=== PATIENT | male | born 1980 | race Caucasian/White ===

== ENCOUNTER 2016-09-09 20:32 | Inpatient (IN) | payer OTHER ==
[~2016-09-09] VITALS: Ht 188 cm; Wt 91.8 kg
[2016-09-09 20:46] VITALS: BP 111/70; PULSE 110; RESP 20; O2SAT 100
--- NOTE | 2016-09-09 21:40 | ED.REPORT ---
HPI-Eye Problem Date of Service Sep 09, 2016 ED Provider: Jabari Rudolph MD Patient is a 36 year old male with a hx of intermittent IV drug use who presents to the ED s/p falling onto a glass mirror late last night. Associated symptoms include R hand swelling, pain, and redness with drainage from a laceration. He denies fever, chills, vomiting, or any other symptoms. He last used IV drugs 3 weeks ago. Nursing Notes Stated Complaint: GLF, RIGHT HAND INJURY Chief Complaint: Extremity Trauma Nursing Notes Reviewed: Yes Allergies: Coded Allergies: hydrocodone (Verified Allergy, Unknown, 09/09/16) No Active Prescriptions or Reported Meds General Time Seen by MD: 21:35 Chief Complaint Other (R hand problem ) Hx Obtained From: Patient Arrived By: Walk-in Sudden in Onset?: Yes Past Medical History Past Medical History none reported Past Surgical History denies Smoking History Current Some Day Smoker Social History Alcohol Use: Denies alcohol use Drug Use: IV drugs, Meth Occupation staying with girlfriend Ambulatory Status Independent Review of Systems Review of Systems Note: +R hand redness, laceration with drainage Constitutional: Denies: Chills, Fever Complete sys rev & neg: except as marked. GI: Denies: Vomiting Musculoskeletal: Reports: Extremity pain, Extremity swelling Physical Exam Initial Vital Signs Vital Signs (First) Date Time Temp Pulse Resp B/P Pulse Ox O2 Delivery O2 Flow Rate FiO2 09/09/16 20:46 37.2 110 20 111/70 100 Room Air Initial VS: Reviewed Extremities: Vascular intact, Neuro intact Skin: Warm, Dry Neurologic: Alert, Oriented, Nonfocal Psychiatric: Mood/affect normal, Behavior normal, Normal thought content Head / Eyes: Atraumatic, Normocephalic General/Constitutional: Awake, Alert, Well developed Respiratory / Chest: Breath sounds NL, Breath sounds = bilat, No respiratory distress Cardiovascular: Heart rate NL, Regular rhythm, Heart sounds NL Wrist / Hand: No deformity R hand neurovascularly intact Streaking lymphangitis 1 cm Laceration, superficial, proximal to R third MCP joint Interpretation & Diagnostics Lab Results Interpretation Result Diagram: 09/09/16222409/09/162224 Test 09/09/16 22:25 09/09/16 22:35 White Blood Count 15.0th/mm3 (3.8-10.1) Red Blood Count 4.65mil/mm3 (4.40-5.80) Hemoglobin 14.3g/dL (13.8-17.2) Hematocrit 41.8% (41.0-50.0) Mean Corpuscular Volume 89.9fL (81-100) Mean Corpuscular Hemoglobin 30.8pg (27.0-35.0) Mean Corpuscular Hemoglobin Concent 34.2% (32.0-37.0) Red Cell Distribution Width 12.1% (12.3-15.4) Platelet Count 286bil/L (150-400) Neutrophils (%) (Auto) 77.5% (40-74) Lymphocytes (%) (Auto) 11.3% (14-46) Monocytes (%) (Auto) 8.3% (4-12) Eosinophils (%) (Auto) 2.3% (0-5) Basophils (%) (Auto) 0.3% (0-3) Hematology Comments Sodium Level 141mEq/L (134-144) Potassium Level 3.7mEq/L (3.5-5.2) Chloride Level 101mEq/L (97-108) Carbon Dioxide Level 27mmol/L (18-29) Blood Urea Nitrogen 14mg/dL (6-20) Creatinine 1.21mg/dL (0.76-1.27) Estimat Glomerular Filtration Rate 73mL/min (>59) Glucose Level 111mg/dL (60-99) Calcium Level 8.8mg/dL (8.5-10.1) Total Bilirubin 0.4mg/dL (0.0-1.2) Aspartate Amino Transf (AST/SGOT) 16U/L (0-50) Alanine Aminotransferase (ALT/SGPT) 17U/L (0-44) Alkaline Phosphatase 86U/L (25-150) Total Protein 7.0g/dL (6.4-8.4) Albumin 4.1g/dL (3.4-5.0) Hold Aldana Top Tube Received (Received) Procalcitonin 0.75ng/mL (0.00-0.08) X-Ray Interpretation Xray Interpretation: No foreign body X-Ray Ordered: Hand right Interpretation / Wet Read by: Interpret - ED physician Re-Eval/Medical Decision Med Decision/Clinical Course 36-year-old male history of IV drug use presenting with right hand tenosynovitis status post laceration from hitting a glass mirror yesterday. He has diffuse right hand tenosynovitis with streaking lymphangitis. His white blood cell count is elevated. He is hemodynamically stable. Discussed with orthopedics who recommended I&D at the laceration site. I performed a vertical laceration per their request and placed 1/4 inch packing. Serosanguineous discharge. Cultures were sent. Patient was started on vancomycin and Zosyn. He will be nothing by mouth at midnight. Admitted to hospital. Re-Evaluation/Progress : Time of Eval: 23:09 Re-Evaluation/Progress Note: Discussed plan for admit. Patient understands and agrees with plan. All questions addressed at this time. Consultation #1: Referral / Consult Name: Stone Winters MD Consulted With: Ortho hand Call Returned at: 22:15 Architectural Project Manager: Will see patient, Agrees with eval, Agrees with plan Note: Admit for IV abx, will see pt in morning. Perform I&D. Consultation #2: Referral / Consult Name: Samaria Tapia DO Consulted With: Hospitalist Call Returned at: 23:23 Architectural Project Manager: Will see patient, Agrees with eval, Agrees with plan, Accepts admit Note: Discussed pt's case. Accepts admit. Counseled Regarding: Diagnosis, Lab results, Need for admission Discharge & Departure Primary Impression: Tenosynovitis of hand Disposition: ADMITTED TO HOSPITAL Discharge Condition All VS Reviewed: Yes Condition: Stable Referrals: NOPCP (PCP) Scribe Attestation Portions of this note were transcribed by Jazmin Styles. I, Dr. Rudolph personally performed the history, physical exam and medical decision-making; I reviewed and confirmed the accuracy of the information in the transcribed note. Signed by: Jazmin Styles 09/09/16, 8157 Procedures Incision & Drainage Abscess I & D Abscess: Right hand I&D Time: 23:02 Procedure Performed by: ED physician Consent / Setup / Site Prep: Informed consent provided, Consent from patient , Time-out performed, Hand hygiene observed, Stand sterile technique Location of Abscess: R hand Skin Preparation Agent: Betadine Local Anesthesia: Lidocaine 1% (3 mL ) Pus Drained: Small, Serosanguinous Irrigation: Copious Post-Procedure / Complications: Packing placed, Culture obtained, Dressing applied, No complications, Condition improved, Tolerated procedure well, Patient stable Jabari Rudolph MD Sep 09, 2016 21:40 JAZMIN STYLES Sep 09, 2016 21:50
[2016-09-09] MEDS ORDERED: Vancomycin Dose per Pharmacist XX ONE (21:50)
[2016-09-09] MEDS ORDERED: 0.9% Sodium Chloride 1,000 ML IV ONE (21:50)
[2016-09-09] MEDS ORDERED: Ondansetron 2 mg/mL 2 mL Inj IVPUSH PRN ×2 (21:50→23:30)
[2016-09-09] MEDS ORDERED: Vancomycin Inj 1,750 MG in 0.9% Sodium Chloride 500 ML IV ONE (22:00)
[2016-09-09] MEDS ORDERED: Lidocaine 1% 50 mL Inj NERVEBLOCK ONE (22:20)
[2016-09-09] MEDS ORDERED: Piperacillin-Tazo 3.375 Gm Inj 3.375 GM in Dextrose 5% Minibag Plus 50 ML IV ONE (22:45)
[2016-09-09 22:49] LABS: Mean Corpuscular Volume 89.9 fL (81-100)
[2016-09-09 22:50] LABS: BASOPHILS % (AUTO) 0.3 % (0-3); EOSINOPHILS % (AUTO) 2.3 % (0-5); MONOCYTES % (AUTO) 8.3 % (4-12); Mean Corpuscular Hemoglobin 30.8 pg (27.0-35.0); NEUTROPHILS % (AUTO) 77.5 % (40-74); Platelet Count 286 bil/L (150-400)
[2016-09-09] MEDS ORDERED: Alum-Mag Hydrox-Simeth 30 mL Suspension PO PRN (23:30)
[2016-09-09 23:34] VITALS: BP 150/88; PULSE 87; RESP 16; O2SAT 100
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
[2016-09-10] MEDS ORDERED: Polyethylene Glycol (PEG) 17 Gm Powder PO PRN (00:10)
[2016-09-10] MEDS ORDERED: Alum-Mag Hydrox-Simeth 30 mL Suspension PO PRN (00:10)
[2016-09-10] MEDS ORDERED: Ondansetron 2 mg/mL 2 mL Inj IVPUSH PRN (00:10)
--- NOTE | 2016-09-10 00:30 | NUR ---
Admit Received report @ [id number] [facility] [employer] Keira, patient arrived now accompanied by girlfriend Dx Tenosynovitis r/t fall. Patient quite somnolent/drowsy MD in with now to assess with minimal answers unable to complete admission patient fast to fall asleep girlfriend did get him to eat some food from [employer], plan is NPO after 4am for I&D, ER did do some draining of abscess and packed and wrapped per report patient place on CPOX, was able to remove pants with patients permission notable knee abrasion to wrapped in gauze was able to stand up briefly to put on PJ pants and get back to bed without assist but was quick to fall back asleep.
[2016-09-10 00:50] VITALS: BP 132/77; PULSE 90; RESP 16; O2SAT 98
[2016-09-10] MEDS: 0.9% Sodium Chloride 1,000 ML IV SCH ×2 (00:54→10:06)
[2016-09-10 05:58] VITALS: BP 127/73; PULSE 88; RESP 19; O2SAT 96
[2016-09-10 06:54] LABS: BASOPHILS % (AUTO) 0.2 % (0-3); EOSINOPHILS % (AUTO) 2.1 % (0-5); MONOCYTES % (AUTO) 8.7 % (4-12); Mean Corpuscular Hemoglobin 30.8 pg (27.0-35.0); Mean Corpuscular Volume 90.7 fL (81-100); NEUTROPHILS % (AUTO) 78.6 % (40-74); Platelet Count 238 bil/L (150-400)
--- NOTE | 2016-09-10 06:54 | PCM.CONPHA ---
Subjective Date of Service: Sep 10, 2016 Requesting Provider: Rakesh Orellana DO Right hand infection History of Present Illness tenosynovitis Reason for Pharmacy Consult: Vancomycin Dosing Objective Assessment/Plan Assessment/Plan A/ - 36 y/o male patient required Vancomycin and Zosyn for tenosynovitis. He is intermittent iv drug user, with hx of abscess, cellulitis, and MRSA - Afebrile, WBC: 15, blood cultures are pending - Received Vancomycin loading dose of 1750 mg iv in ED, along with Zosyn - Had I&D in ED, and planned I&D surgery in am, NPO and IVF 100ml/hr - Wt: 91.8 kg, ht: 188 cm, BMI: 26 kg/m2, SCr: 1.21 mg/dL (unknown baseline) , estimated clearance ~ 110 ml/dL (ABW globalRPh), t1/2 ~ 7hrs, Vd ~ 64 L P/ - Give vancomycin 1250 mg iv q8h. Trough level ordered before 4th dose @ 2230 on 09/10 Pharmacy will continue to follow and make necessary adjustment Thank you for consulting clinical pharmacy in the care of this patient Felix Sanchez Sep 10, 2016 06:54
--- NOTE | 2016-09-10 07:58 | PCM.PNORTH ---
Subjective Date of Service: Sep 10, 2016 Visit Information: Reason for Visit Tenosynovitis Surgery/Surgery Date Post-Op Day # Date of Admission: Sep 09, 2016 at 23:29 Hospital Day # Subjective Found patient sleeping in bed and difficult to arouse. Incoherent mumbling but no meaningful communication this morning. Patient had guest in room overnight. RN raised concern for possible administration of nonhospital approved medication to patient by guest. Patient had no complaints this morning and did allow bandage change. Patient's wound was observed and this information was communicated to Dr. Stone Winters as requested. Patient's RN is requesting pain medication orders morning and I have directed him to hospitalist service to manage this. Postop General: No Complaints Objective Exam Objective Patient appears obtunded this morning with no meaningful communication during our contact. Right hand dressing is removed this morning and a small skin opening is noted at the dorsal aspect of his hand near his third metacarpal phalangeal joint with a wick protruding from it. This area is compressed and no bernardo pus is noted or discharged. Wick is left in place and patient's hand is re-bandaged. Patient does display some volitional movement of the right hand but this is uncomfortable as noted by some grunting vocalization. Vital Signs and I/O Vital Sign - Last Date Time Temp Pulse Resp B/P Pulse Ox O2 Delivery O2 Flow Rate FiO2 09/10/16 05:58 37.2 88 19 127/73 96 Room Air Intake and Output 09/09/16 09/09/16 09/10/16 Cumulative From/Thru 15:00 23:00 07:00 09/09/16 20:46 - 09/10/16 06:02 Intake Total 1008 ml 1008 ml Balance 1008 ml 1008 ml Intake IV Total 1008 ml 1008 ml Lab & Micro Results Laboratory Tests Test 09/09/16 22:25 09/09/16 22:35 09/10/16 06:09 09/10/16 07:15 White Blood Count 15.0th/mm3 (3.8-10.1) 12.2th/mm3 (3.8-10.1) Red Blood Count 4.65mil/mm3 (4.40-5.80) 4.32mil/mm3 (4.40-5.80) Hemoglobin 14.3g/dL (13.8-17.2) 13.3g/dL (13.8-17.2) Hematocrit 41.8% (41.0-50.0) 39.2% (41.0-50.0) Mean Corpuscular Volume 89.9fL (81-100) 90.7fL (81-100) Mean Corpuscular Hemoglobin 30.8pg (27.0-35.0) 30.8pg (27.0-35.0) Mean Corpuscular Hemoglobin Concent 34.2% (32.0-37.0) 33.9% (32.0-37.0) Red Cell Distribution Width 12.1% (12.3-15.4) 12.3% (12.3-15.4) Platelet Count 286bil/L (150-400) 238bil/L (150-400) Neutrophils (%) (Auto) 77.5% (40-74) 78.6% (40-74) Lymphocytes (%) (Auto) 11.3% (14-46) 10.2% (14-46) Monocytes (%) (Auto) 8.3% (4-12) 8.7% (4-12) Eosinophils (%) (Auto) 2.3% (0-5) 2.1% (0-5) Basophils (%) (Auto) 0.3% (0-3) 0.2% (0-3) Hematology Comments Sodium Level 141mEq/L (134-144) Potassium Level 3.7mEq/L (3.5-5.2) Chloride Level 101mEq/L (97-108) Carbon Dioxide Level 27mmol/L (18-29) Blood Urea Nitrogen 14mg/dL (6-20) Creatinine 1.21mg/dL (0.76-1.27) Estimat Glomerular Filtration Rate 73mL/min (>59) Glucose Level 111mg/dL (60-99) Calcium Level 8.8mg/dL (8.5-10.1) Total Bilirubin 0.4mg/dL (0.0-1.2) Aspartate Amino Transf (AST/SGOT) 16U/L (0-50) Alanine Aminotransferase (ALT/SGPT) 17U/L (0-44) Alkaline Phosphatase 86U/L (25-150) Total Protein 7.0g/dL (6.4-8.4) Albumin 4.1g/dL (3.4-5.0) Hold Aldana Top Tube Received (Received) Procalcitonin 0.75ng/mL (0.00-0.08) Microbiology 09/09/16 Blood Culture, Received Pending Result Diagram: 09/10/16 0609 09/09/16 7590 General Appearance: Other (obtunded) Extremities: No Compartment Syndrom Noted, Other (generalized swelling and mild erythema is noted at the dorsal aspect of the patient's right hand.) Postop Sensory Motor: Movement in Fingers Catheters: None Assessment & Plan Impression Patient is admitted with apparent hand infection and 2 different stories regarding how this has occurred. Patient has undergone a bedside I&D at the ED with wick placement and bandaging. Patient is kept overnight for observation. Problems: Plan Postadmission day #1 from right hand injury with apparent infection and swelling. Patient is counseled by Dr. Stone velázquez. Continue nonweightbearing at the right upper extremity. Continue antibiotics as previously ordered. Continue by mouth pain medication per hospitalist service. Consider limitation of this appears to control possible outside substance administration. In discussion with Dr. Stone Winters this morning it is decided to discontinue planned repeat I&D in the OR today. Orthopedics thanks hospitalist service for help with medical management of this patient. Anticipated discharge pending micro-results. VTE Prophylaxis: SCDs Resuscitation Status: CPR: Attempt Resuscitation Finesse Delgado PA-C Sep 10, 2016 07:58
--- NOTE | 2016-09-10 08:16 | PCM.PNMED ---
Subjective Date of Service Sep 10, 2016 Subjective Pt is lethargic this morning. There is suspicion that he received Vicodin overnight. Can fully answers questions this morning. No SOB. Pt still has pain in R hand, no numbness of hand. Exam Vital Signs Vital Sign - Last Date Time Temp Pulse Resp B/P Pulse Ox O2 Delivery O2 Flow Rate FiO2 09/10/16 05:58 37.2 88 19 127/73 96 Room Air Intake and Output 09/09/16 09/09/16 09/10/16 Cumulative From/Thru 15:00 23:00 07:00 09/09/16 20:46 - 09/10/16 06:02 Intake Total 1008 ml 1008 ml Balance 1008 ml 1008 ml Intake IV Total 1008 ml 1008 ml Exam General: The patient is somnolent, slow to answer questions but is AOX3 HEENT: NC/AT, eyes, pupils are pinpoint but reactive to light,neck, soft supple , no adenopathy, no JVD, no masses, no thyromegaly, throat mucous membranes pink and moist, no erythema, no exudates, no tonsillar swelling. Lungs: CTAB all vaca, no wheezes, no rhonchi, no crackles, no adventitious lung sounds, no use of accessory muscles of respiration. Cardiovascular: Regular rate and rhythm, no murmur, S1-S2 present, no rub, no click, no distant heart sounds, GI: Soft, nontender, nondistended, bowel sounds active, no rebound, no guarding, Genitourinary: no Berger catheter, Extremities: Muscle strength, 5 out of 5 upper/lower extremity and symmetric laterally, pulses equal and symmetric upper/lower extremity including radial and dorsalis pedis, no edema Neurologic: Reflexes intact Skin: The dorsal right hand third metacarpal joint with swelling redness and erythema and is bandaged. The bandage was not removed. No drainage noted. Lymph: no cervical or supraclavicular lymphadenopathy Psych: no able to assess secondary to patient somnolence, concerning IVDU IVs and Medications Medications Reviewed: Medications were reviewed in detail Lab and Diagnostics Result Diagram: 09/10/16 0609 09/09/16 9522 Microbiology Blood Cultures- pending. Assessment & Plan Since a pleasant 36-year-old male with history of IV drug abuse who presented to the ED after falling on plate glass mirror sustaining a wound to the right proximal MCP. Patient had I&D in the ED, orthopedic surgery was consulted, he was placed on IV antibiotics Zosyn and vancomycin and admitted to the hospital for medical management in preparation for possible surgical procedure in the morning. # Right hand wound, present on admission, active - Patient reportedly fell on plate glass mirror causing a wound in his hand. - 2 view hand x-ray negative for fracture or foreign body - 2 sets of blood cultures have been ordered and are pending - Patient received IV antibiotics in the ED vancomycin and Zosyn which will be continued. - We will avoid Augmentin as patient has an allergy. - I&D was done in the ED with removal of purulent material however this does not appear to have been cultured. - Orthopedic surgery has been consulted by the ED and has seen the patient. - He will be placed nothing by mouth after after [address] Winters. - WBC downtrending ater starting Vanc/Zosyn, will continue. Afebrile overnight. - I&D surgical procedure in the morning as planned, will likely be at bedside. Will hold further pain meds due to lethargy. # Hypertensive, present on admission, active - Likely secondary to agitation and pain - BP 150/88 with a map of 108. # Acute leukocytosis, present on admission, active -Vital signs: Temperature 37.2, pulse 110, respiratory rate 20, blood pressure 150/88, 100% room air. -WBCs 15.0, 77% PMNs - Cultures have been ordered and are pending - We will continue IV Zosyn and vancomycin started in the emergency department. # History of IV drug abuse - It is likely the patient received opioid medication while he was along with his emergency worker in the emergency room. This was denied by the emergency worker however on arrival to the [facility] the patient was obtunded and had pinpoint pupils and was unresponsive to questioning.' - Last use was reportedly 3 weeks ago. - Reported drug of choice is methamphetamine - We will obtain urine tox - Continuous pulse oximetry to monitor for respiratory depression. - We will continue to monitor for suspicious behavior with regards to drug abuse. Security is aware and we will lock up pt's belongings. # History of prior skin abscesses and cellulitis On 07/07/2003 patient had facial abscess that grew oxacillin resistant staph aureus susceptible to clindamycin tetracycline, Bactrim and vancomycin. Review of [facility] record showed patient had a urgent care visit and 2004 for a upper extremity secondary to a dog bite. Disposition: Admitted to in patient service with expected length of stay greater than 2 days, secondary to severity of presenting symptoms, treatment plan, complexity of clinical work up, and risk of adverse events. CODE STATUS: Full code PCP: No PCP DVT PE prophylaxis: SCD's Contact: Unknown, GI Prophylaxis: Not indicated VTE Prophylaxis: SCDs VTE Mechanical Devices: Intermittant Pneumatic CD Resuscitation Status: CPR: Attempt Resuscitation Kvng Burleson MD Sep 10, 2016 07:57
[2016-09-10] MEDS: Vancomycin Dose per Pharmacist XX SCH (08:30)
[2016-09-10 08:33] VITALS: BP 123/82; PULSE 89; RESP 18; O2SAT 98
[2016-09-10] MEDS ORDERED: HYDROmorphone 0.5 mg/0.5 mL iSecure Syringe IVPUSH ONE (09:15)
[2016-09-10] MEDS: Piperacillin-Tazo 3.375 Gm Inj 3.375 GM in Dextrose 5% Minibag Plus 50 ML IV SCH ×2 (09:29→17:01)
[2016-09-10 09:33] LABS: APPEARANCE,URINE HAZY (CLEAR,HAZY); COLOR,URINE YELLOW (YELLOW); OCCULT BLOOD,URINE NEGATIVE (NEGATIVE); PH,URINE 5.5 (5.0-8.0); UROBILINOGEN,URINE NORMAL (NORMAL)
[2016-09-10] MEDS: Vancomycin Inj 1,250 MG in 0.9% Sodium Chloride 250 ML IV SCH ×2 (10:09→14:50)
--- NOTE | 2016-09-10 10:20 | NUR ---
Security Concerns Pt is IVDA, meth pos. Security was never informed during the night, so belongings are now locked in the med room since we don't have locking closets here. Pt understands policy about visitors not being able to come between 7p and 7a. Pt has a visitor in room, appears to be a girlfriend, she understands that her belongings need to be kept at the nurses station. It is difficult to assess whether medications have been snuck in by pts friends over the night, or if friend continues to, r/t pt sedation. Pt did state that a friend gave him 4 vicodin last night, but was unclear about timing, it does appear that this happened at the hospital according to reports of a male friend that came to visit with a backpack and that the patient was sedated after this male friend came.
[2016-09-10] MEDS ORDERED: HYDROmorphone 0.5 mg/0.5 mL iSecure Syringe IVPUSH PRN ×2 (11:05→11:30)
[2016-09-10] MEDS: HYDROmorphone 0.5 mg/0.5 mL iSecure Syringe IVPUSH PRN ×2 (11:29→12:29)
--- NOTE | 2016-09-10 11:40 | DRSVH ---
PROCEDURE: X-RAY RIGHT HAND, TWO VIEWS ([id number]) INDICATIONS: laceration glass r/o foreign body TECHNIQUE: 2 views of the hand(s) acquired. COMPARISON: None. FINDINGS: Bones: No fractures or dislocations. Carpal bones are normally aligned. No suspicious bony lesions . Soft tissues: No suspicious soft tissue calcifications. Dorsal soft tissue swelling. IMPRESSION: No acute bony injury or soft tissue foreign body seen. Dictated by: Ortega LEGGETT Interpreted: Aida Dale MD on 09/10/2016 at 8:30 Approved by: Aida Dale M.D. on 09/10/2016 at 11:38
--- NOTE | 2016-09-10 11:55 | NUR ---
Pt visitor Pt still has a female visitor, they have been more problematic w/ belongings. Pt doesn't care about belongings leaving the room, but the visitor is very hesitant for me to take their bag into the nurses station. It is difficult because when the patient was admitted and arrived none of this was addressed and it has come as a surprise to this female visitor.
[2016-09-10] MEDS ORDERED: HYDROmorphone 1 mg/mL Inj IVPUSH PRN (12:30)
[2016-09-10 12:33] VITALS: BP 117/79; PULSE 92; RESP 14; O2SAT 97
[2016-09-10 16:33] VITALS: BP 117/81; PULSE 78; RESP 14; O2SAT 98
--- NOTE | 2016-09-10 17:41 | NUR ---
Pain Pt has had no c/o pain since second dose of vanco, pt appears to be responding very well to the current tx plan and is very apologetic about his frustration earlier and is very thankful for care.
[2016-09-10 20:14] VITALS: BP 120/75; PULSE 88; RESP 18; O2SAT 99
[2016-09-10] MEDS ORDERED: Vancomycin Serum Trough XX ONE (22:30)
[2016-09-11] MEDS: 0.9% Sodium Chloride 1,000 ML IV SCH ×3 (00:20→16:06)
[2016-09-11] MEDS: Vancomycin Inj 1,250 MG in 0.9% Sodium Chloride 250 ML IV SCH ×4 (00:21→22:48)
[2016-09-11] MEDS: Piperacillin-Tazo 3.375 Gm Inj 3.375 GM in Dextrose 5% Minibag Plus 50 ML IV SCH ×3 (00:48→17:07)
--- NOTE | 2016-09-11 00:50 | PCM.PHAPRO ---
Progress Date of Service: Sep 11, 2016 Right hand infection tenosynovitis A/ - 36 y/o male pt receiving Vancomycin and Zosyn therapy day 1 for empirical coverage for his right hand tenosynovitis - WBC trending down, afebrile, however blood cultures showed positive for Gram positive cocci staph - I&D surgery was performed on his hand 09/10 - Vancomycin trough came back @13.1 P/ - Although the trough is little low than expected of 15-20 range for treating tenosynovitis, but consideration the risk of medication accumulation, will continue with current dose of Vancomycin 1250mg iv q8h. Pharmacy will re-evaluate daily and make necessary adjustment accordingly Thank you Felix Sanchez Sep 11, 2016 00:50
--- NOTE | 2016-09-11 01:00 | NUR ---
Vanco trough results back late but wnl hung dose late Rx aware stated it can be run concurrent with Zosyn
[2016-09-11 06:04] VITALS: BP 114/72; PULSE 86; RESP 17; O2SAT 99
--- NOTE | 2016-09-11 06:07 | NUR ---
Shift note Uneventful night did wake consumed all of dinner Toradol given for pain then again once medicated with Dilaudid otherwise slept through night
[2016-09-11] MEDS: Vancomycin Dose per Pharmacist XX SCH (08:30)
--- NOTE | 2016-09-11 10:30 | NUR ---
Swelling/Redness Patient reports worsened swelling and redness. Edema in right hand and forearm. Redness outlined. Radial pulse present, sensation intact, and pt can move fingers. Hospitalist made aware.
--- NOTE | 2016-09-11 10:45 | NUR ---
Social Work: Brief Note / Multidisciplinary Rounds Data: Pt is a 36 y/o male admitted for tenosynovitis. Pt's PCP is not listed, pt's insurance is [employer]. EMR reviewed. Pt discussed in rounds. [employer] ASSEMBLY SUPERVISOR acknowledges CD assessment order. Pt is currently on IVABX, unknown if pt will need at d/c at this time. [employer] ASSEMBLY SUPERVISOR will continue to follow. Assessment: Pt who is independent at baseline, IV drug use. Plan: KEYMODULE ASSEMBLY SUPERVISOR will complete CD assessment. [employer] ASSEMBLY SUPERVISOR will continue to follow for possible IVABX use at d/c. RONNIE Young
[2016-09-11 11:05] VITALS: BP 120/74; PULSE 71; RESP 20; O2SAT 98
--- NOTE | 2016-09-11 11:08 | PCM.PNMED ---
Subjective Date of Service Sep 11, 2016 Subjective Patient still complaining of right hand pain. Says while the overall severity of the pain has decreased from 10 out of 10-8 out of 10, patient himself says pain and erythema is extending further up his arm to the mid forearm now. Denies any fever or chills. Exam Vital Signs Vital Sign - Last Date Time Temp Pulse Resp B/P Pulse Ox O2 Delivery O2 Flow Rate FiO2 09/11/16 06:04 36.9 86 17 114/72 99 Room Air Intake and Output 09/10/16 09/10/16 09/11/16 Cumulative From/Thru 15:00 23:00 07:00 09/09/16 20:46 - 09/11/16 06:06 Intake Total 3361 ml 4369 ml Output Total 620 ml 620 ml Balance -620 ml 3361 ml 3749 ml Intake Oral 360 ml 360 ml IV Total 3001 ml 4009 ml Output Urine Total 620 ml 620 ml # Voids 2 2 Exam General: Patient is more alert and can carry on full conversation. Alert and oriented 3 appears to be in less discomfort. HEENT: NC/AT, eyes, PERRLA. neck, soft supple, no adenopathy, no JVD, no masses , no thyromegaly, throat mucous membranes pink and moist, no erythema, no exudates, no tonsillar swelling. Lungs: CTAB all vaca, no wheezes, no rhonchi, no crackles, no adventitious lung sounds, no use of accessory muscles of respiration. Cardiovascular: Regular rate and rhythm, no murmur, S1-S2 present, no rub, no click, no distant heart sounds, GI: Soft, nontender, nondistended, bowel sounds active, no rebound, no guarding, Genitourinary: no Berger catheter, Extremities: Muscle strength, 5 out of 5 upper/lower extremity and symmetric laterally, pulses equal and symmetric upper/lower extremity including radial and dorsalis pedis, no edema Neurologic: Reflexes intact Skin: The dorsal right hand third metacarpal joint with swelling redness and erythema and is bandaged.No drainage noted.Erythema does not appear to have extended. Lymph: no cervical or supraclavicular lymphadenopathy IVs and Medications Medications Reviewed: Medications were reviewed in detail Lab and Diagnostics Result Diagram: 09/10/16 0609 09/11/16 0704 Microbiology Microbiology 09/09/16 Blood Culture - Preliminary, Resulted Positive Blood Culture 09/11/16 MRSA (PCR) - Final, Complete 09/09/16 Gram Stain - Final, Resulted 09/09/16 Culture & Sensitivity - Preliminary, Resulted Strep Pyogenes Beta (Grp A) 09/09/16 Anaerobic Culture, Resulted Pending Assessment & Plan Since a pleasant 36-year-old male with history of IV drug abuse who presented to the ED after falling on plate glass mirror sustaining a wound to the right proximal MCP. Patient had I&D in the ED, orthopedic surgery was consulted, he was placed on IV antibiotics Zosyn and vancomycin with possible Staph Bacteremia. # Right hand wound, present on admission, active - Patient reportedly fell on plate glass mirror causing a wound in his hand. - 2 view hand x-ray negative for fracture or foreign body - 2 sets of blood cultures have been ordered and are pending - Patient received IV antibiotics in the ED vancomycin and Zosyn which will be continued. - We will avoid Augmentin as patient has an allergy. - I&D was done in the ED with removal of purulent material however this does not appear to have been cultured. - Orthopedic surgery has been consulted by the ED and has seen the patient. - He will be placed nothing by mouth after after [address] Winters. - WBC downtrending ater starting Vanc/Zosyn, will continue. - Per Ortho no further I&D surgical procedure planned. We will follow up. # Sepsis- present on admission, active. Sirs positive on initial presentation with heart rate greater than 90 and Initial WBC of 15, down trending. Source Likely secondary to right hand wound with possible staph bacteremia. Patient's initial blood cultures are positive for gram-positive cocci in 1/2 bottles. Staff species ID and sensitivity pending. We will continue with vancomycin and Zosyn.eus. Patient does have a history of MRSA in his IVDA user. -We will consult with infectious disease Dr. Rudd to determine length of antibiotics. appreciate recommendations. -While patient does not have murmur, consider echocardiogram although source appears to be the right hand. # Hypertensive, present on admission, active - Initially elevated 150/88 with a map of 108 Likely secondary to agitation and pain -Continue to monitor. # History of IV drug abuse - It is likely the patient received opioid medication while he was along with his environmental services worker in the emergency room. This was denied by the environmental services worker however [place] [facility] [place] patient was obtunded and had pinpoint pupils and was unresponsive to questioning.' - Last use was reportedly 3 weeks ago. - Reported drug of choice is methamphetamine - We will obtain urine tox - Continuous pulse oximetry to monitor for respiratory depression. - We will continue to monitor for suspicious behavior with regards to drug abuse. Security is aware and we will lock up pt's belongings. # History of prior skin abscesses and cellulitis On 07/07/2003 patient had facial abscess that grew oxacillin resistant staph aureus susceptible to clindamycin tetracycline, Bactrim and vancomycin. Review of [facility] record showed patient had a urgent care visit and 2004 for a upper extremity secondary to a dog bite. Disposition: Admitted to in patient service with expected length of stay greater than 2 days, secondary to severity of presenting symptoms, treatment plan, complexity of clinical work up, and risk of adverse events. CODE STATUS: Full code PCP: No PCP DVT PE prophylaxis: SCD's Contact: Unknown, Pain Evaluation: Adequate Pain Control GI Prophylaxis: Not indicated VTE Prophylaxis: SCDs VTE Mechanical Devices: Intermittant Pneumatic CD Resuscitation Status: CPR: Attempt Resuscitation Time spent 45 mins Kvng Burleson MD Sep 11, 2016 11:08
--- NOTE | 2016-09-11 11:19 | ABG ---
DateTimeAnalyzed 11:10:08 -_ pH ____7.430 - 7.350 7.450 pCO2 ___45.6__ -mmHg 35.0 45.0 pO2 ___86.5__ -mmHg 69.0 116 HCO3- ___30.2__ -mmol/L 22.0 26.0 ABE ____5.3__ -mmol/L tHb ___12.6__ -g/dL O2Hb ___96.4__ -% COHb ____1.3__ -% 1.5 MetHb ____0.1__ -% sO2 ___97.7__ -% FIO2 ___21.0__ -% Drawn By btl - Date/Time Notified____ 11:20:00 -_ Notified By btl - Notified Whom ___Dr. Sarah Beth - K+ ____3.6__ -mmol/L tO2 ___17.1__ -Vol% Dajuan test N/A -
[2016-09-11 11:20] LABS: BASOPHILS % (AUTO) 0.3 % (0-3); EOSINOPHILS % (AUTO) 4.2 % (0-5); MONOCYTES % (AUTO) 11.5 % (4-12); Mean Corpuscular Hemoglobin 30.9 pg (27.0-35.0); Mean Corpuscular Volume 88.5 fL (81-100); NEUTROPHILS % (AUTO) 68.3 % (40-74); Platelet Count 261 bil/L (150-400)
[2016-09-11 14:44] VITALS: BP 129/84; PULSE 82; RESP 20; O2SAT 98
--- NOTE | 2016-09-11 14:45 | PCM.PNORTH ---
Subjective Date of Service: Sep 11, 2016 Visit Information: Reason for Visit Tenosynovitis Surgery/Surgery Date Post-Op Day # Date of Admission: Sep 09, 2016 at 23:29 Hospital Day # 2 Subjective Patient reports the hand feels more swollen today. He feels the redness is spreading. The nurse outlined the redness at the base of the wrist this morning. Postop General: No Complaints, No Shortness of Breath, No Chest Pain Pain Management: PO Objective Exam Objective Patient is seen sitting up in bed. Vital Signs and I/O Vital Sign - Last Date Time Temp Pulse Resp B/P Pulse Ox O2 Delivery O2 Flow Rate FiO2 09/11/16 11:05 36.8 71 20 120/74 98 Room Air Intake and Output 09/10/16 09/10/16 09/11/16 Cumulative From/Thru 15:00 23:00 07:00 09/09/16 20:46 - 09/11/16 06:06 Intake Total 3361 ml 4369 ml Output Total 620 ml 620 ml Balance -620 ml 3361 ml 3749 ml Intake Oral 360 ml 360 ml IV Total 3001 ml 4009 ml Output Urine Total 620 ml 620 ml # Voids 2 2 Lab & Micro Results Laboratory Tests Test 09/10/16 22:40 09/11/16 07:04 09/11/16 10:55 09/11/16 11:37 Vancomycin Level Trough 13.1mcg/mL Sodium Level 140mEq/L (134-144) Potassium Level 4.5mEq/L (3.5-5.2) Chloride Level 106mEq/L (97-108) Carbon Dioxide Level 17mmol/L (18-29) Blood Urea Nitrogen 9mg/dL (6-20) Creatinine 1.12mg/dL (0.76-1.27) Estimat Glomerular Filtration Rate 79mL/min (>59) Glucose Level 96mg/dL (60-99) Calcium Level 8.2mg/dL (8.5-10.1) White Blood Count 10.6th/mm3 (3.8-10.1) Red Blood Count 4.17mil/mm3 (4.40-5.80) Hemoglobin 12.9g/dL (13.8-17.2) Hematocrit 36.9% (41.0-50.0) Mean Corpuscular Volume 88.5fL (81-100) Mean Corpuscular Hemoglobin 30.9pg (27.0-35.0) Mean Corpuscular Hemoglobin Concent 35.0% (32.0-37.0) Red Cell Distribution Width 11.9% (12.3-15.4) Platelet Count 261bil/L (150-400) Neutrophils (%) (Auto) 68.3% (40-74) Lymphocytes (%) (Auto) 15.4% (14-46) Monocytes (%) (Auto) 11.5% (4-12) Eosinophils (%) (Auto) 4.2% (0-5) Basophils (%) (Auto) 0.3% (0-3) Lactic Acid Level 1.4mmol/L (0.4-2.0) Microbiology 09/09/16 Blood Culture - Preliminary, Resulted Positive Blood Culture 09/11/16 MRSA (PCR) - Final, Complete 09/09/16 Gram Stain - Final, Resulted 09/09/16 Culture & Sensitivity - Preliminary, Resulted Strep Pyogenes Beta (Grp A) 09/09/16 Anaerobic Culture, Resulted Pending Result Diagram: 09/11/16 1055 09/11/16 0704 General Appearance: Alert, Oriented X3, Cooperative, Mild Distress Extremities: Distal Pulses Palpable, Tenderness/Swelling Noted (there is moderate swelling of the hand), Other (No drainage could be expressed from the wound. The hand is a dusky red color.) Postop Sensory Motor: Movement in Fingers (limited by swelling) SURGICAL WOUND : Wound Location/Description The small wound on the dorsum of the MF MCP joint has minimal serous drainage on the dressing. The wick is removed. No drainage could be expressed from the wound. There is no lymphangitis present R UE. The wound is irrigated with saline , dressed with adaptic, 2x2 gauze, bell and covered with a 2" elastic bandage. Catheters: None Assessment & Plan Impression Right hand infection Problems: Plan The right hand wound has no purulence today. The wick was removed today and a bulky dry dressing applied. The hand is moderately swollen. I instructed the patient to elevate the hand above the level of the heart on pillows. He should elevate the hand all the time. Activity: No use of right hand. There is no specific site of abscess at this point, so surgical I&D is not warranted at this time. We will continue to monitor the redness and swelling. WBC is decreased today. Continue with IV abx per medicine. If the hand swelling is not improved tomorrow , will consider immobilizing the hand/wrist. Ortho will continue to follow. Pain Management: toradol VTE Prophylaxis: SCDs Resuscitation Status: CPR: Attempt Resuscitation Leanna Emanuel PA-C Sep 11, 2016 14:45
[2016-09-11 18:51] VITALS: BP 149/81; PULSE 86; RESP 18; O2SAT 100
--- NOTE | 2016-09-11 19:20 | NUR ---
Visitor/Belongings Pt friend Naomi returned to floor today. Nursing boat outfitting supervisor contacted and advised she is not allowed to visit patient. Naomi informed pt not allowed visitors and her belongings in nurses station were returned to her. Any other visitors must leave belongings at nurses station before entering room. Pt later requesting to have money out of locked up belongings. Senior Storage Engineer advised and pt not allowed to have belongings until discharge. Patient informed of this.
[2016-09-11 22:52] VITALS: BP 115/74; PULSE 85; RESP 16; O2SAT 99
[2016-09-12] MEDS: Piperacillin-Tazo 3.375 Gm Inj 3.375 GM in Dextrose 5% Minibag Plus 50 ML IV SCH ×2 (00:44→13:22)
[2016-09-12] MEDS: 0.9% Sodium Chloride 1,000 ML IV SCH ×2 (03:56→12:06)
[2016-09-12 06:09] VITALS: BP 100/58; PULSE 62; RESP 18; O2SAT 97
--- NOTE | 2016-09-12 06:13 | NUR ---
Shift note Uneventful night only requesting pain Meds x1 Toradol was effective up und to BR Did lose IV access will wait for IV therapy very difficult stick!
[2016-09-12 07:35] LABS: BASOPHILS % (AUTO) 0.3 % (0-3); EOSINOPHILS % (AUTO) 6.1 % (0-5); MONOCYTES % (AUTO) 12.1 % (4-12); Mean Corpuscular Hemoglobin 30.4 pg (27.0-35.0); Mean Corpuscular Volume 88.5 fL (81-100); NEUTROPHILS % (AUTO) 64.1 % (40-74); Platelet Count 248 bil/L (150-400)
[2016-09-12] MEDS: Vancomycin Inj 1,250 MG in 0.9% Sodium Chloride 250 ML IV SCH ×2 (08:50→09:30)
[2016-09-12] MEDS: HYDROmorphone 1 mg/mL Inj IVPUSH PRN ×4 (09:41→21:22)
[2016-09-12 10:08] VITALS: BP 144/78; PULSE 73; RESP 18; O2SAT 99
--- NOTE | 2016-09-12 10:44 | PCM.PNORTH ---
Subjective Date of Service: Sep 12, 2016 Visit Information: Reason for Visit Tenosynovitis Surgery/Surgery Date Post-Op Day # Date of Admission: Sep 09, 2016 at 23:29 Hospital Day # 4 Subjective Patient is sleeping but awakens enough to cooperative with dressing change. IV was lost and is now placed in right foot. Postop General: No Complaints, No Shortness of Breath, No Chest Pain Pain Management: IV Push Objective Exam Objective Patient is seen laying in bed with right hand propped up on pillows Vital Signs and I/O Vital Sign - Last Date Time Temp Pulse Resp B/P Pulse Ox O2 Delivery O2 Flow Rate FiO2 09/12/16 10:08 36.9 73 18 144/78 99 Room Air Intake and Output 09/11/16 09/11/16 09/12/16 Cumulative From/Thru 15:00 23:00 07:00 09/09/16 20:46 - 09/12/16 06:10 Intake Total 1823 ml 2160 ml 8352 ml Output Total 620 ml Balance 1823 ml 2160 ml 7732 ml Intake Oral 800 ml 360 ml 1520 ml IV Total 1023 ml 1800 ml 6832 ml Output Urine Total 620 ml # Voids 3 1 6 Lab & Micro Results Laboratory Tests Test 09/11/16 10:55 09/11/16 11:37 09/12/16 07:05 White Blood Count 10.6th/mm3 (3.8-10.1) 9.2th/mm3 (3.8-10.1) Red Blood Count 4.17mil/mm3 (4.40-5.80) 4.34mil/mm3 (4.40-5.80) Hemoglobin 12.9g/dL (13.8-17.2) 13.2g/dL (13.8-17.2) Hematocrit 36.9% (41.0-50.0) 38.4% (41.0-50.0) Mean Corpuscular Volume 88.5fL (81-100) 88.5fL (81-100) Mean Corpuscular Hemoglobin 30.9pg (27.0-35.0) 30.4pg (27.0-35.0) Mean Corpuscular Hemoglobin Concent 35.0% (32.0-37.0) 34.4% (32.0-37.0) Red Cell Distribution Width 11.9% (12.3-15.4) 11.9% (12.3-15.4) Platelet Count 261bil/L (150-400) 248bil/L (150-400) Neutrophils (%) (Auto) 68.3% (40-74) 64.1% (40-74) Lymphocytes (%) (Auto) 15.4% (14-46) 17.2% (14-46) Monocytes (%) (Auto) 11.5% (4-12) 12.1% (4-12) Eosinophils (%) (Auto) 4.2% (0-5) 6.1% (0-5) Basophils (%) (Auto) 0.3% (0-3) 0.3% (0-3) Lactic Acid Level 1.4mmol/L (0.4-2.0) Sodium Level 141mEq/L (134-144) Potassium Level 3.8mEq/L (3.5-5.2) Chloride Level 104mEq/L (97-108) Carbon Dioxide Level 24mmol/L (18-29) Blood Urea Nitrogen 8mg/dL (6-20) Creatinine 1.46mg/dL (0.76-1.27) Estimat Glomerular Filtration Rate 58mL/min (>59) Glucose Level 107mg/dL (60-99) Calcium Level 8.2mg/dL (8.5-10.1) Microbiology 09/12/16 Blood Culture, Received Pending 09/11/16 MRSA (PCR) - Final, Complete 09/09/16 Gram Stain - Final, Resulted 09/09/16 Culture & Sensitivity - Preliminary, Resulted Strep Pyogenes Beta (Grp A) 09/09/16 Anaerobic Culture - Preliminary, Resulted Result Diagram: 09/12/1670409/12/16704 General Appearance: Alert, Oriented X3, Cooperative, No Acute Distress Extremities: Distal Pulses Palpable Postop Sensory Motor: Distal Motor Intact, Movement in Fingers, Distal Sensation Intact, NVI Distally SURGICAL WOUND : Wound Location/Description Right hand: the dressing is removed. There is small amount of serosanguinous drainage on the dressing. Swelling is decreased. There is increased movement in the fingers. Erythema has receded from the line at the wrist. The hand and forearm are warm to the touch. Hand is dressed with a small adaptic over the wound, 2x2 gauze, 2" Emeterio and covered with an elastic bandage. Activity: Ambulating Independently Catheters: None Assessment & Plan Impression Right hand infection Problems: Plan The right hand swelling is decreasing. There is mild draiange from the wound. redness is receding from the line at the wrist. Movement of the fingers is improving. Activity: No use of right hand. Continue with elevation of the hand on pillows There is no specific site of abscess at this point, so surgical I&D is not warranted at this time. We will continue to monitor the redness and swelling. Continue with IV abx per medicine. Ortho will continue to follow. Pain Management: Dilaudid IV, toradol VTE Prophylaxis: SCDs Resuscitation Status: CPR: Attempt Resuscitation [place] ParkLeanna Stevens PA-C Sep 12, 2016 10:44
--- NOTE | 2016-09-12 10:51 | PCM.PNMED ---
Subjective Date of Service Sep 12, 2016 Subjective Pt reports improved pain in left hand. Denies fever/chills. Think redness has also improved. Exam Vital Signs Vital Sign - Last Date Time Temp Pulse Resp B/P Pulse Ox O2 Delivery O2 Flow Rate FiO2 09/12/16 10:08 36.9 73 18 144/78 99 Room Air Intake and Output 09/11/16 09/11/16 09/12/16 Cumulative From/Thru 15:00 23:00 07:00 09/09/16 20:46 - 09/12/16 06:10 Intake Total 1823 ml 2160 ml 8352 ml Output Total 620 ml Balance 1823 ml 2160 ml 7732 ml Intake Oral 800 ml 360 ml 1520 ml IV Total 1023 ml 1800 ml 6832 ml Output Urine Total 620 ml # Voids 3 1 6 Exam General: Patient is more alert and can carry on full conversation. Alert and oriented 3 appears to be in less discomfort. HEENT: NC/AT, eyes, PERRLA. neck, soft supple, no adenopathy, no JVD, no masses , no thyromegaly, throat mucous membranes pink and moist, no erythema, no exudates, no tonsillar swelling. Lungs: CTAB all vaca, no wheezes, no rhonchi, no crackles, no adventitious lung sounds, no use of accessory muscles of respiration. Cardiovascular: Regular rate and rhythm, no murmur, S1-S2 present, no rub, no click, no distant heart sounds, GI: Soft, nontender, nondistended, bowel sounds active, no rebound, no guarding, Genitourinary: no Berger catheter, Extremities: Muscle strength, 5 out of 5 upper/lower extremity and symmetric laterally, pulses equal and symmetric upper/lower extremity including radial and dorsalis pedis, no edema Neurologic: Reflexes intact Skin: The dorsal right hand third metacarpal joint with swelling redness and erythema and is bandaged.No drainage noted.Erythema does not appear to have extended. Lymph: no cervical or supraclavicular lymphadenopathy IVs and Medications Medications Reviewed: Medications were reviewed in detail Lab and Diagnostics Result Diagram: 09/12/16 0709/12/16 07 Microbiology Microbiology 09/12/16 Blood Culture, Received Pending 09/11/16 MRSA (PCR) - Final, Complete 09/09/16 Gram Stain - Final, Resulted 09/09/16 Culture & Sensitivity - Preliminary, Resulted Strep Pyogenes Beta (Grp A) 09/09/16 Anaerobic Culture - Preliminary, Resulted CARINA CULTURE BLOOD Preliminary 09/12/16-700 Organism 1 STAPHYLOCCUS LUGDUNENSIS GRAM STAIN RESULT GRAM POSITIVE COCCI ?STAPH BC BOTTLE Isolated from Single Aerobic Bottle Drawn DATE CALLED: 09/10/16 TIME CALLED: 2305 CALLED BY: SUDHAKAR FLOOR/DOCTOR: JAIRO OSWALD READ BACK YES TYPE OF DRAW PERIPHERAL DRAW TIME OF POSITIVITY 2246 STAPHYLOCCUS LUGDUNENSIS Oxacillin Susceptible Penicillin Resistant Staph spp. are Susceptible to Penicillin stable penicillins, Blactam/Blactamase inhibitor combinations, antistaphyloccal cephems, and carbapenems. ISOLATED FROM ONE OF FOUR BOTTLES COLLECTED 09/09 1. STAPHYLOCCUS LUGDUNENSIS M.I.C Interp --------- ------ * CEFAZOLIN S * CLINDAMYCIN <=0.25 S * ERYTHROMYCIN 0.5 S * OXACILLIN CARINA <=0.25 S * RIFAMPIN <=0.5 S * TETRACYCLINE <=1 S * TRIMETHOPRIM/SULFAMETHOXAZOLE <=10 S * VANCOMYCIN <=0.5 S CARINA CULT AEROBIC Preliminary 09/12/16 Organism 1 STREP PYOGENES BETA (GRP A) COLONY COUNT/QUANTITY HEAVY GROWTH "Penicillin and ampicillin continues to be the drugs of choice for treatment of B-hemolytic streptoccal infections. Susceptibility testing of penicillin and other B-lactams approved by the FDA for treatment of B-hemolytic streptococcal infections need not be performed routinely. because non-susceptible isolates (ie. penicillin CARINA's >0.12 and ampicillin MICs >0.25 ug/ml) are extremely rare in any B-hemolytic streptococcal isolate and have not been reported for Streptococcus pyogenes. (CLSI C853-J56 VOL.31 NO 1 2010) 1. STREP PYOGENES BETA (GRP A) M.I.C Interp --------- ------ * AMPICILLIN <=0.25 S * CEFOTAXIME <=0.12 S * CEFTRIAXONE <=0.12 S * CLINDAMYCIN <=0.25 S * ERYTHROMYCIN <=0.12 S * PENICILLIN-G <=0.06 S * VANCOMYCIN 0.5 S ANAEROBIC CULTURE Preliminary 09/12/16-826 No ANAEROBES recovered at 48 hours hold for futher observation Assessment & Plan Since a pleasant 36-year-old male with history of IV drug abuse who presented to the ED after falling on plate glass mirror sustaining a wound to the right proximal MCP. Patient had I&D in the ED, orthopedic surgery was consulted, he was placed on IV antibiotics Zosyn and vancomycin. Wound Cx- shows Strep Pyognes and Blood Cx shows Staph Lugdunensis. # Right hand wound, present on admission, active - Patient reportedly fell on plate glass mirror causing a wound in his hand. - 2 view hand x-ray negative for fracture or foreign body - 2 sets of blood cultures have been ordered and are pending - Patient received IV antibiotics in the ED vancomycin and Zosyn which will be continued. - We will avoid Augmentin as patient has an allergy. - I&D was done in the ED with removal of purulent material however this does not appear to have been cultured. - Orthopedic surgery has been consulted by the ED and has seen the patient. - WBC downtrending ater starting Vanc/Zosyn. - Per OrthoDr. Worthington, no further I&D surgical procedure planned. - Wound Cx- shows Strep Pyognes and Blood Cx shows Staph Lugdunensis. Susceptibilites are available, will switch to clindamycin 450 every 6 hours. # Sepsis- present on admission, active. Sirs positive on initial presentation with heart rate greater than 90 and Initial WBC of 15, down trending. Source Likely secondary to right hand wound with possible staph bacteremia. Patient's initial blood cultures are positive for gram-positive cocci in 1/2 bottles. Staff species ID and sensitivity pending. We will continue with vancomycin and Zosyn.eus. 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 -While patient does not have murmur, considered echocardiogram although source appears to be the right hand so can hold off. -Wound Cx- shows Strep Pyognes and Blood Cx shows Staph Lugdunensis. -Susceptibilities are available, will switch to clindamycin 450 mg IV every 6 hours for 14 days as will also supress GAS toxin production. -We will need to call infectious disease Tuesday morning to go over above plan regarding antibiotic choice and determine length. #WINSTON- present on admission, solving -Patient presented with a elevated serum creatinine. Unclear his baseline. Creatinine did rise after vancomycin administration which is expected. Continue with IV fluids. As per above vancomycin has been switched to clindamycin. Repeat BMP in a.m. # Hypertensive, present on admission, active - Initially elevated 150/88 with a map of 108 Likely secondary to agitation and pain -Continue to monitor. # History of IV drug abuse - It is likely the patient received opioid medication while he was along with his truck rental service attendant in the emergency room. This was denied by the truck rental service attendant however [place] [facility] [place] was obtunded and had pinpoint pupils and was unresponsive to questioning.' - Last use was reportedly 3 weeks ago. - Reported drug of choice is methamphetamine - We will obtain urine tox - Continuous pulse oximetry to monitor for respiratory depression. - We will continue to monitor for suspicious behavior with regards to drug abuse. Security is aware and we will lock up pt's belongings. # History of prior skin abscesses and cellulitis On 07/07/2003 patient had facial abscess that grew oxacillin resistant staph aureus susceptible to clindamycin tetracycline, Bactrim and vancomycin. Review of [facility] record showed patient had a urgent care visit and 2003 for a upper extremity secondary to a dog bite. Disposition: Admitted to in patient service with expected length of stay greater than 2 days, secondary to severity of presenting symptoms, treatment plan, complexity of clinical work up, and risk of adverse events. Discharge Instructs- -Social work is aware of helping to arrange primary care physician patient as pt will need follow-up evaluation after he completes course of antibiotics. -Per Ortho so there is no current outpatient follow-up needed at this time. CODE STATUS: Full code PCP: No PCP DVT PE prophylaxis: SCD's Contact: Unknown, Pain Evaluation: Adequate Pain Control GI Prophylaxis: Not indicated VTE Prophylaxis: Sub-Q Heparin (Unfractionated), SCDs VTE Mechanical Devices: Intermittant Pneumatic CD Resuscitation Status: CPR: Attempt Resuscitation Time spent 45 mins Kvng Burleson MD Sep 12, 2016 10:51
[2016-09-12] MEDS: Vancomycin Dose per Pharmacist XX SCH (11:47)
--- NOTE | 2016-09-12 11:58 | NUR ---
Social Work- Continued D/C Planning/Multi-Disciplinary Rounds Data & Assessment: Per multidisciplinary rounds pt has been drowsy. Pt has history of IVDU. Pt needs CD assessment. MD recommends PCP follow up for pt. Susceptibilities are pending. Pt may discharge tomorrow. WALTER attempted to meet with pt at bedside regarding discharge planning and to complete CD assessment. Pt was very somnolent and unable to keep his eyes open. Pt requested ELECTRONIC SEMICONDUCTOR PROCESSOR return later today to chat. SW will continue to follow. Plan: Pt too sleepy to complete assessment. SW will return later today and continue to follow. RONNIE Pa Addendum: 09/12/16 at 1603 by LEONARDO STOREY WALTER met with pt at bedside regarding CD assessment as ordered by . Pt declined CD assessment again and requested that ELECTRONIC SEMICONDUCTOR PROCESSOR not return to speak about CD. Pt has CD resources at bedside. Walter spoke with pt regarding discharge planning- Pt currently resides with friends in [place] and anticipates returning there at discharge. Pt has no concerns about obtaining his prescriptions. Pt is independent at baseline. Pt has no PCP at this time, pt agreeable to receiving a [facility] up. WALTER will ensure that pt is scheduled prior to discharge. Pt anticipated to return to friends home at discharge via POV. SW will continue to follow for abx needs at discharge. Pt will need PCP appointment scheduled [facility]. RONNIE Pa
[2016-09-12 15:07] VITALS: BP 134/73; PULSE 84; RESP 18; O2SAT 97
[2016-09-12] MEDS: Heparin 5,000 Unit/mL Inj SUBQ SCH (16:30)
[2016-09-12] MEDS: Clindamycin Inj 900 MG in IV Premix 1 EACH IV SCH (17:06)
[2016-09-12 17:27] VITALS: BP 156/82; PULSE 78; RESP 20; O2SAT 99
--- NOTE | 2016-09-12 17:40 | NUR ---
IV IV therapy placed IV in left forearm, but infiltrated when flushed. IV therapy and Hospitalist contacted. Order received to place IV in foot. IV therapy placed IV in right foot.
[2016-09-12] MEDS: CeFAZolin 2 Gm/50 mL D5W IV Premix IV SCH (20:11)
[2016-09-12] MEDS ORDERED: CeFAZolin 2 Gm/50 mL D5W Duplex Bag IV SCH (20:30)
[2016-09-12 21:00] VITALS: BP 126/72; PULSE 80; RESP 17; O2SAT 94
[2016-09-13] MEDS: Clindamycin Inj 900 MG in IV Premix 1 EACH IV SCH ×3 (00:27→17:01)
[2016-09-13] MEDS: Heparin 5,000 Unit/mL Inj SUBQ SCH ×3 (00:27→16:30)
[2016-09-13 01:45] VITALS: BP 109/63; PULSE 63; RESP 18; O2SAT 96
[2016-09-13] MEDS: HYDROmorphone 1 mg/mL Inj IVPUSH PRN ×7 (01:46→21:44)
[2016-09-13] MEDS: 0.9% Sodium Chloride 1,000 ML IV SCH ×3 (01:46→18:06)
--- NOTE | 2016-09-13 06:01 | NUR ---
Shift Note Assumed pt care at 1900, pt noted drowsy, easily awakens with verbal stimulation, continues with IVF, R hand with maria luisa wrap dressing, low grade temp tonight at 37.7, call light in reach at all times.
[2016-09-13 06:06] VITALS: BP 108/68; PULSE 78; RESP 17; O2SAT 96
[2016-09-13 07:01] LABS: BASOPHILS % (AUTO) 0.3 % (0-3); Mean Corpuscular Volume 88.3 fL (81-100)
[2016-09-13 07:05] LABS: EOSINOPHILS % (AUTO) 7.7 % (0-5); MONOCYTES % (AUTO) 9.2 % (4-12); Mean Corpuscular Hemoglobin 30.9 pg (27.0-35.0); NEUTROPHILS % (AUTO) 62.3 % (40-74)
[2016-09-13 07:41] LABS: Magnesium 1.5 mg/dL (1.6-2.6); Phosphorus 4.1 mg/dL (2.5-4.9)
[2016-09-13] MEDS: CeFAZolin 2 Gm/50 mL D5W IV Premix IV SCH (07:45)
[2016-09-13 08:15] VITALS: BP 126/80; PULSE 68; RESP 18; O2SAT 96
--- NOTE | 2016-09-13 08:20 | PCM.PNORTH ---
Subjective Date of Service: Sep 13, 2016 Visit Information: Reason for Visit Tenosynovitis Surgery/Surgery Date Post-Op Day # Date of Admission: Sep 09, 2016 at 23:29 Hospital Day # 4 Subjective Patient states his pain and swelling is decreasing however it is still uncomfortable to move his fingers. He states the redness has decreased. He is complaining that his dressings feel tight. Postop General: No Complaints, No Shortness of Breath, No Chest Pain Pain Management: IV Push Objective Exam Objective Patient sitting up in bed Vital Signs and I/O Vital Sign - Last Date Time Temp Pulse Resp B/P Pulse Ox O2 Delivery O2 Flow Rate FiO2 09/13/16 06:06 36.8 78 17 108/68 96 Room Air Intake and Output 09/12/16 09/12/16 09/13/16 Cumulative From/Thru 15:00 23:00 07:00 09/09/16 20:46 - 09/13/16 06:18 Intake Total 2551 ml 1250 ml 37736 ml Output Total 1200 ml 1820 ml Balance 1351 ml 1250 ml 80628 ml Intake Oral 2240 ml 350 ml 4110 ml IV Total 311 ml 900 ml 8043 ml Output Urine Total 1200 ml 1820 ml # Voids 3 6 15 Lab & Micro Results Laboratory Tests Test 09/13/16 06:30 White Blood Count 7.1th/mm3 (3.8-10.1) Red Blood Count 4.46mil/mm3 (4.40-5.80) Hemoglobin 13.8g/dL (13.8-17.2) Hematocrit 39.4% (41.0-50.0) Mean Corpuscular Volume 88.3fL (81-100) Mean Corpuscular Hemoglobin 30.9pg (27.0-35.0) Mean Corpuscular Hemoglobin Concent 35.0% (32.0-37.0) Red Cell Distribution Width 12.0% (12.3-15.4) Platelet Count khoi/L (150-400) Neutrophils (%) (Auto) 62.3% (40-74) Lymphocytes (%) (Auto) 19.4% (14-46) Monocytes (%) (Auto) 9.2% (4-12) Eosinophils (%) (Auto) 7.7% (0-5) Basophils (%) (Auto) 0.3% (0-3) Sodium Level 143mEq/L (134-144) Potassium Level 3.6mEq/L (3.5-5.2) Chloride Level 103mEq/L (97-108) Carbon Dioxide Level 25mmol/L (18-29) Blood Urea Nitrogen 7mg/dL (6-20) Creatinine 1.33mg/dL (0.76-1.27) Estimat Glomerular Filtration Rate 65mL/min (>59) Glucose Level 101mg/dL (60-99) Calcium Level 8.3mg/dL (8.5-10.1) Phosphorus Level 4.1mg/dL (2.5-4.9) Magnesium Level 1.5mg/dL (1.6-2.6) Total Bilirubin 0.3mg/dL (0.0-1.2) Aspartate Amino Transf (AST/SGOT) 15U/L (0-50) Alanine Aminotransferase (ALT/SGPT) 13U/L (0-44) Alkaline Phosphatase 72U/L (25-150) Total Protein 6.0g/dL (6.4-8.4) Albumin 3.1g/dL (3.4-5.0) Procalcitonin 0.16ng/mL (0.00-0.08) Microbiology 09/13/16 Blood Culture, Received Pending 09/11/16 MRSA (PCR) - Final, Complete 09/09/16 Gram Stain - Final, Resulted 09/09/16 Culture & Sensitivity - Preliminary, Resulted Strep Pyogenes Beta (Grp A) 09/09/16 Anaerobic Culture - Preliminary, Resulted Result Diagram: 09/13/16 0630 09/13/16 0630 General Appearance: Alert, Oriented X3, Cooperative, No Acute Distress Extremities: Distal Pulses Palpable, No Compartment Syndrom Noted (forearm compartments soft), Tenderness/Swelling Noted (Mild to moderate swelling throughout hand, moderate throughout long finger) Postop Sensory Motor: Distal Motor Intact, Movement in Fingers, Distal Sensation Intact, NVI Distally SURGICAL WOUND : Wound Location/Description Dressings clean, dry and intact. Do not appear to be too tight. Activity: Ambulating Independently Catheters: None Assessment & Plan Impression Right hand infection Problems: Plan The right hand swelling is decreasing. Redness is receding from the line at the wrist. Movement of the fingers is improving. Activity: No weightbearing with the right hand, encourage gentle wiggling of the fingers every 3-4 hours. Continue with elevation of the hand on pillows. May improve with icing as well. Recommend oral pain medications. There is no specific site of abscess at this point, so surgical I&D is not warranted at this time. Continue antibiotics per medicine. Ortho will sign off at this time as patient is stable. Follow up with orthopedics in 1 week with YOON or Dr. Winters. VTE Prophylaxis: Sub-Q Heparin (Unfractionated), SCDs Resuscitation Status: CPR: Attempt Resuscitation Blanca Handley PA-C Sep 13, 2016 08:20
[2016-09-13] MEDS ORDERED: Magnesium Sulf 2 Gm/50mL Water 2 GM in IV Premix 1 EACH IV ONE (08:30)
--- NOTE | 2016-09-13 12:18 | PCM.PNMED ---
Subjective Date of Service Sep 13, 2016 Subjective Pain and swelling of right hand much improved. Low-grade fever of 37.7 yesterday. Exam Vital Signs Vital Sign - Last Date Time Temp Pulse Resp B/P Pulse Ox O2 Delivery O2 Flow Rate FiO2 09/13/16 08:15 36.4 68 18 126/80 96 Room Air Intake and Output 09/12/16 09/12/16 09/13/16 Cumulative From/Thru 15:00 23:00 07:00 09/09/16 20:46 - 09/13/16 06:18 Intake Total 2551 ml 1250 ml 07337 ml Output Total 1200 ml 1820 ml Balance 1351 ml 1250 ml 71386 ml Intake Oral 2240 ml 350 ml 4110 ml IV Total 311 ml 900 ml 8043 ml Output Urine Total 1200 ml 1820 ml # Voids 3 6 15 Exam General: Alert and oriented 3 HEENT: NC/AT, eyes, PERRLA. neck, soft supple, no adenopathy, no JVD, no masses , no thyromegaly, throat mucous membranes pink and moist, no erythema, no exudates, no tonsillar swelling. Lungs: CTAB all vaac, no wheezes, no rhonchi, no crackles, no adventitious lung sounds, no use of accessory muscles of respiration. Cardiovascular: Regular rate and rhythm, no murmur, S1-S2 present, no rub, no click, no distant heart sounds, GI: Soft, nontender, nondistended, bowel sounds active, no rebound, no guarding, Genitourinary: no Berger catheter, Extremities: Muscle strength, 5 out of 5 upper/lower extremity and symmetric laterally, pulses equal and symmetric upper/lower extremity including radial and dorsalis pedis, no edema Neurologic: Reflexes intact Skin: The dorsal right hand third metacarpal joint with swelling redness and erythema and is bandaged.No drainage noted.swelling and Erythema improved Lymph: no cervical or supraclavicular lymphadenopathy IVs and Medications Medications Reviewed: Medications were reviewed in detail Lab and Diagnostics Result Diagram: 09/13/1630 09/13/16 0630 Microbiology Microbiology 09/12/16 Blood Culture, Received Pending 09/11/16 MRSA (PCR) - Final, Complete 09/09/16 Gram Stain - Final, Resulted 09/09/16 Culture & Sensitivity - Preliminary, Resulted Strep Pyogenes Beta (Grp A) 09/09/16 Anaerobic Culture - Preliminary, Resulted CARINA CULTURE BLOOD Preliminary 09/12/16-700 Organism 1 STAPHYLOCCUS LUGDUNENSIS GRAM STAIN RESULT GRAM POSITIVE COCCI ?STAPH BC BOTTLE Isolated from Single Aerobic Bottle Drawn DATE CALLED: 09/10/16 TIME CALLED: 2305 CALLED BY: SUDHAKAR FLOOR/DOCTOR: JAIRO OSWALD READ BACK YES TYPE OF DRAW PERIPHERAL DRAW TIME OF POSITIVITY 2246 STAPHYLOCCUS LUGDUNENSIS Oxacillin Susceptible Penicillin Resistant Staph spp. are Susceptible to Penicillin stable penicillins, Blactam/Blactamase inhibitor combinations, antistaphyloccal cephems, and carbapenems. ISOLATED FROM ONE OF FOUR BOTTLES COLLECTED 09/09 1. STAPHYLOCCUS LUGDUNENSIS M.I.C Interp --------- ------ * CEFAZOLIN S * CLINDAMYCIN <=0.25 S * ERYTHROMYCIN 0.5 S * OXACILLIN CARINA <=0.25 S * RIFAMPIN <=0.5 S * TETRACYCLINE <=1 S * TRIMETHOPRIM/SULFAMETHOXAZOLE <=10 S * VANCOMYCIN <=0.5 S CARINA CULT AEROBIC Preliminary 09/12/16 Organism 1 STREP PYOGENES BETA (GRP A) COLONY COUNT/QUANTITY HEAVY GROWTH "Penicillin and ampicillin continues to be the drugs of choice for treatment of B-hemolytic streptoccal infections. Susceptibility testing of penicillin and other B-lactams approved by the FDA for treatment of B-hemolytic streptococcal infections need not be performed routinely. because non-susceptible isolates (ie. penicillin CARINA's >0.12 and ampicillin MICs >0.25 ug/ml) are extremely rare in any B-hemolytic streptococcal isolate and have not been reported for Streptococcus pyogenes. (CLSI Y275-Y54 VOL.31 NO 1 2010) 1. STREP PYOGENES BETA (GRP A) M.I.C Interp --------- ------ * AMPICILLIN <=0.25 S * CEFOTAXIME <=0.12 S * CEFTRIAXONE <=0.12 S * CLINDAMYCIN <=0.25 S * ERYTHROMYCIN <=0.12 S * PENICILLIN-G <=0.06 S * VANCOMYCIN 0.5 S ANAEROBIC CULTURE Preliminary 09/12/16-4013 No ANAEROBES recovered at 48 hours hold for futher observation X-Rays, CTs and MRIs PROCEDURE: X-RAY RIGHT HAND, TWO VIEWS ([id number]) INDICATIONS: laceration glass r/o foreign body TECHNIQUE: 2 views of the hand(s) acquired. COMPARISON: None. FINDINGS: Bones: No fractures or dislocations. Carpal bones are normally aligned. No suspicious bony lesions. Soft tissues: No suspicious soft tissue calcifications. Dorsal soft tissue swelling. IMPRESSION: No acute bony injury or soft tissue foreign body seen. Dictated by: Ortega Mohr RRJuvenal Interpreted: Aida Dale MD on 09/10/2016 at 8:30 Assessment & Plan Since a pleasant 36-year-old male with history of IV drug abuse who presented to the ED after falling on plate glass mirror sustaining a wound to the right proximal MCP. Patient had I&D in the ED, orthopedic surgery was consulted, he was placed on IV antibiotics Zosyn and vancomycin. Wound Cx- shows Strep Pyognes and Blood Cx shows Staph Lugdunensis. # Right hand cellulitis with abscess, present on admission, active - Patient reportedly fell on plate glass mirror causing a wound in his hand. - 2 view hand x-ray negative for fracture or foreign body - Patient initially treated with IV antibiotics vancomycin and Zosyn. Switched to cefazolin and clindamycin after sensitivity is available - We will avoid Augmentin as patient has an allergy. - I&D was done in the ED with removal of purulent material ,culture Strep Pyognes - Per Dr. Ander Mcneal, no further I&D surgical procedure planned. - Wound Cx- shows Strep Pyognes and Blood Cx shows Staph Lugdunensis. Susceptibilites are available, will switch to clindamycin 450 every 6 hours. # Staph Lugdunensis bacteremia -1 out of 2 blood culture growing Lugdunensis bacteremia -Consulted infectious disease Dr chapman -TTE ordered per Dr Chapman rec # Sepsis- present on admission, resolved . -Sirs positive on initial presentation with heart rate greater than 90 and Initial WBC of 15, down trending. Source right hand wound with possible staph bacteremia. Patient's initial blood cultures are positive for gram- positive cocci in 1/2 bottles. Staff species ID and sensitivity pending. We will continue with vancomycin and Zosyn.eus. 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 -While patient does not have murmur, considered echocardiogram although source appears to be the right hand so can hold off. -Wound Cx- shows Strep Pyognes and Blood Cx shows Staph Lugdunensis. #WINSTON- present on admission,improving -baseline probably 1.1 ,currently at 1.36 # History of IV drug abuse - It is likely the patient received opioid medication while he was along with his stove refinisher in the emergency room. This was denied by the stove refinisher however on arrival to the [facility] the patient was obtunded and had pinpoint pupils and was unresponsive to questioning.' - Last use was reportedly 3 weeks ago. - Reported drug of choice is methamphetamine -Toxicology positive for opiates and amphetamine - We will continue to monitor for suspicious behavior with regards to drug abuse. Security is aware and we will lock up pt's belongings. # History of prior skin abscesses and cellulitis On 07/07/2003 patient had facial abscess that grew oxacillin resistant staph aureus susceptible to clindamycin tetracycline, Bactrim and vancomycin. Review of [facility] record showed patient had a urgent care visit and 2004 for a upper extremity secondary to a dog bite. Disposition: Possible discharge in 1-2 days pending ID recommendation Discharge Instructs- -Social work is aware of helping to arrange primary care physician patient as pt will need follow-up evaluation after he completes course of antibiotics. -Per Ortho so there is no current outpatient follow-up needed at this time. CODE STATUS: Full code PCP: No PCP DVT PE prophylaxis: SCD's Contact: Unknown, GI Prophylaxis: Not indicated VTE Prophylaxis: Sub-Q Heparin (Unfractionated), SCDs VTE Mechanical Devices: Intermittant Pneumatic CD Resuscitation Status: CPR: Attempt Resuscitation Esau Gudino MD Sep 13, 2016 12:18 DVT PE prophylaxis: SCD's Contact: Unknown, GI Prophylaxis: Not indicated VTE Prophylaxis: Sub-Q Heparin (Unfractionated), SCDs VTE Mechanical Devices: Intermittant Pneumatic CD Resuscitation Status: CPR: Attempt Resuscitation Easu Gudino MD Sep 13, 2016 12:18 VTE Mechanical Devices: Intermittant Pneumatic CD Resuscitation Status: CPR: Attempt Resuscitation Esau Gudino MD Sep 13, 2016 12:18
[2016-09-13] MEDS ORDERED: Oritavancin Diphosphate 400 mg Vial IV ONE (17:05)
--- NOTE | 2016-09-13 17:12 | DRSVH ---
[facility] [address] [place] [address] Echocardiogram Report Name: TABITHA DAVIS PStudy Date: 09/13/2016 Height: 74 in Hospital Exam Location: [facility] Weight: 202 lb Gender: Male BSA: 2.2 m2 : 1980 Age: 36 yrs BP: 126/80 mmHg Reason For Study: BACTEREMIA History: IVDA Performed By: Erica Perry Interpretation Summary The ejection fraction is estimated to be 55-60%. No evidence of endocarditis, consider ANNA if clinically indicated There is no significant valvular heart disease. Procedure: A two-dimensional transthoracic echocardiogram with color flow and Doppler was performed. There is no prior echocardiogram noted for this patient. The study quality was technically adequate. The patient was in normal sinus rhythm during the exam. Left Ventricle: The left ventricle is normal in size. Left ventricular wall thickness is normal. The ejection fraction is estimated to be 55-60%. Left ventricular wall motion is normal. Right Ventricle: The right ventricle is normal in size and function. Atria: Both atria are normal in size. There is no Doppler evidence for an interatrial shunt. Mitral Valve: The mitral valve is normal in structure and function. There is no mitral regurgitation noted. Aortic Valve: A bicuspid aortic valve cannot be excluded. There is mild aortic regurgitation. Tricuspid Valve: The tricuspid valve is normal in structure and function. There is trace tricuspid regurgitation. The right ventricular systolic pressure is estimated at 28 mmHg assuming a right atrial pressure of 3 mm Hg. Pulmonic Valve: The pulmonic valve is not well visualized. Great Vessels: Aortic root is at the upper limits of normal in size. The ascending aorta is mild-moderately enlarged. The aortic arch is at the upper limits of normal in size. The IVC is of normal diameter and collapses greater than 50% with a sniff. This suggests a low right atrial pressure of 3 mm Hg. Pericardium/ Pleura There is no pericardial effusion. MMode/2D Measurements & Calculations LVIDd: 5.1 cm RA long axis LVOT diam: 2.5 cm LVIDs: 3.2 cm LA A2 area: 11.5 cm AoV Opening FS: 36.4 % LA A4 area: 13.8 cm RA area EPSS: 0.54 cm LA length (vol) Ao root diam IVSd: 0.66 cm : 14.8 cm LVPWd: 0.95 cm LA vol: 34.6 ml RA vol Aortic Jxn: 3.1 cm LA vol index : 41.4 ml asc Aorta Diam RA : 19.0 mm2 Ao Arch Diam (Prox IVC diam: 1.8 cm Trans): 3.2 cm LV sandra. diameter/BSA LV sys. diameter/BSA RVD1 (basal) RVD2 (mid): 3.0 cm (cm/m^2): 2.3 (cm/m^2): 1.5 TAPSE: 2.5 cm Doppler Measurements & Calculations Ao V2 max MV E max moris MV E/A: 1.8 TR max moris : 193.2 cm/sec : 127.4 cm/sec Med Peak E' Moris : 249.5 cm/sec Ao max PG MV A max moris TR max PG : 14.9 mmHg : 69.4 cm/sec E/E' med: 13.1 : 24.9 mmHg Ao mean PG MV P1/2t: 75.4 msec Lat Peak E' Moris PA V2 max : 102.2 cm/sec LVOT Max Moris E/E' lat: 9.2 PA mean PG : 99.7 cm/sec E/e' average: 11.2 PA Accel Time OLY(I,D): 3.1 cm : 0.12 sec sev ratio MV dec time MV P1/2t max moris Ao V2 mean LV V1 max PG : 0.25 sec : 132.3 cm/sec MVA(P1/2t): 2.9 cm2 Ao V2 VTI: 38.1 cm LV V1 VTI OLY(V,D): 2.6 cm2 : 23.1 cm PA V2 mean OLY indexed to BSA : 79.4 cm/sec (cm^2/m^2): 1.4 Electronically signed by: Bill Mtz on Reading Physician:09/13/2016 05:11 PM
[2016-09-13] MEDS ORDERED: Oritavancin Diphosphate 1,200 MG in Dextrose 5% 1,000 ML IV ONE (17:15)
[2016-09-13 17:58] VITALS: BP 144/76; PULSE 72; RESP 16; O2SAT 99
--- NOTE | 2016-09-13 18:54 | NUR ---
Day Shift Pt drowsy throughout shift. Pn level peaked at 7/10. Dilauded given q2-3 hours throughout the shift. Pt pleasant, called appropriately. Two female visitors today. Belongings checked at desk. Pt ind to bathroom, steady gait. IV antibiotics given throughout, no issues with IV in Right foot. No fluids run over 80mls/hr.
[2016-09-13 20:50] VITALS: BP 107/56; PULSE 76; RESP 17; O2SAT 97
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
[2016-09-14] MEDS: Heparin 5,000 Unit/mL Inj SUBQ SCH ×2 (00:30→07:55)
[2016-09-14] MEDS: Clindamycin Inj 900 MG in IV Premix 1 EACH IV SCH (00:41)
[2016-09-14 01:16] VITALS: BP 116/66; PULSE 79; RESP 16; O2SAT 97
[2016-09-14 04:01] VITALS: BP 121/73; PULSE 64; RESP 19; O2SAT 95
[2016-09-14] MEDS: HYDROmorphone 1 mg/mL Inj IVPUSH PRN (04:01)
[2016-09-14] MEDS: 0.9% Sodium Chloride 1,000 ML IV SCH (04:31)
--- NOTE | 2016-09-14 04:43 | NUR ---
PAIN/ABO Pain managed with prn IV dilaudid, uses call light for assistance, VSS afebrile, this RN was told by day nurse to not run any IVF over 80ml/hr per IV therapy rec due to fragile IV site to right foot, Administered single dose of oritavancin @ rate of 80ml/hr approved by pharmacist (ananya), IVF infusing well, hourly checks, call light in reach at all times.
[2016-09-14 07:15] LABS: BASOPHILS % (AUTO) 0.4 % (0-3); EOSINOPHILS % (AUTO) 6.6 % (0-5); MONOCYTES % (AUTO) 11.4 % (4-12); Mean Corpuscular Volume 88.5 fL (81-100); NEUTROPHILS % (AUTO) 64.4 % (40-74); Platelet Count 254 bil/L (150-400)
--- NOTE | 2016-09-14 08:44 | NUR ---
Isolation Contact isolation discontinued per verbal order from Hospitalist.
--- NOTE | 2016-09-14 11:45 | PCM.DIMED ---
Discharge Instructions Date of Service Sep 14, 2016 Dates of Hospitalization Sep 09, 2016 at 23:29 Discharge Diagnosis Discharge Diagnosis # Right hand cellulitis with abscess, present on admission, active - s/p I&D # Staph Lugdunensis bacteremia # Sepsis- present on admission, resolved . #WINSTON- present on admission,improving # History of IV drug abuse # History of prior skin abscesses and cellulitis Diet Discharge Diet: No restrictions Activity Discharge Activity: No restrictions Call your provider Call your provider for: Fever or Chills, Shortness of breath, Bleeding, Chest pain, Vomitting, Excessive diarrhea, Weakness (unilateral) Patient Instructions Patient Instructions You were hospitalized due to right hand and wrist cellulitis and abscess which was drained . You also were noted to have bacteria in blood .You were treated with IV antibiotics and recieved Ortavancin on 09/13 ( long acting antibiotics ) .Please follow up with wound care clinic for wound care daily . Please follow up with PCP in 1 -2 weeks. Follow-up with PCP in: 1 week Provider: Sudhir Rudd MD Follow-up in: 2 weeks Esau Gudino MD Sep 14, 2016 11:45
[2016-09-14] MEDS ORDERED: HYDR4TAB PO (11:47)
--- NOTE | 2016-09-14 11:56 | PROG NOTE ---
[address] [address] PROGRESS NOTE PATIENT: TABITHA DAVIS : 1980 MR#: [id number] ADMIT: 09/09/2016 JOB ID: [id number] DATE: 09/14/2016 INFECTIOUS DISEASE FOLLOW UP NOTE: REASON FOR FOLLOWUP: Single positive blood culture for Staph lugdunensis and positive culture from the hand of Group A strep. INTERVAL HISTORY: Overnight, the patient has felt well. No fevers, chills or sweats. No pulmonary or GI symptoms. His right hand is steadily improving. He is now able to make a fist. PHYSICAL EXAMINATION: Reveals an afebrile gentleman, in no acute distress. Temperature 36.8, pulse 64, respiratory rate 19, blood pressure 121/73, saturating well on room air. No acute distress. Lungs are clear. Cardiac: Normal. Abdomen: Benign. His right hand still has a minimal dressing over the knuckle area, but much less tender, less swollen and now he can make basically a fist with the right hand. No new heart murmur specifically. LABORATORIES: Include a white count now normal 7600. He does have a mild eosinophilia probably due to antibiotics. His creatinine is 1.32. Albumin 3.1. Procalcitonin 0.16. One blood culture out of 16 bottles now pending which is probably an excessive number but 1/16 positive for Staph lugdunensis so far and that was from one of the admission blood cultures. The group A strep grew from the culture of a hand which interestingly did not grow Staph lugdunensis. The echocardiogram showed no evidence for endocarditis. IMPRESSION: Staph lugdunensis bacteremia is always deeply troubling because it can signal the development of a fulminant endocarditis which is often lethal even in healthy hosts. This patient though has only one positive blood culture out of what is now 16 bottles pending in the laboratory and I think this is probably not indicative of endocarditis based on his physical examination, the single positive blood culture and the negative transthoracic echo. Ordinarily we might pursue a transesophageal echo, but in such a nontoxic patient, who is very anxious to leave the hospital as soon as possible, I do not think it is necessary. The main problem going on here I suspect is a strep in the hand. The patient received oritavancin overnight in anticipation of his strong desire to be discharged today and I think this will serve as a useful coverage for both of these pathogens. RECOMMENDATIONS: 1. Oritavancin has been given already. 2. I think the patient could be discharged at any time and the IV removed from his foot. 3. The patient will not be receiving home IV infusions because he has a history of substance abuse and intravenous drug injection and I do not think oral therapy is necessary now that he has received Aredia Vancocin. 4. ID will be signing off and I discussed this case in person with Dr. Blanco. [facility]
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
--- NOTE | 2016-09-14 12:50 | NUR ---
Discharge Patient ambulated off floor at 1242 to be driven home by friend. Declined wheelchair. IV d/c'd intact. All discharge information discussed with patient including medications and follow up appointments. Patient seen by wound care prior to d/c, instructions and supplies given for pt to do dressing changes. Patient instructed to call [facility] for follow up in a week. Dr Rudd's office will call pt to schedule appointment. All belongings returned to patient at d/c.
--- NOTE | 2016-09-14 13:01 | NUR ---
Social Work: Discharge D: EMR reviewed. Pt is on day 5 of hospitalization. Per MD, pt to discharge on PO ABX. SW met with pt regarding discharge planning. Pt currently resides with friends in [place] and anticipates returning there at discharge. Pt has no concerns about obtaining his prescriptions. Pt discharged prior to scheduling PCP. SW requested MD order required to schedule PCP appointment. SW did not receive MD order prior to pt's discharge. Pt discharged with friends via POV home. A: Pt who is independent at baseline. P: Pt has no concerns about obtaining his prescriptions. Pt discharged prior to scheduling PCP. SW requested MD order required to schedule PCP appointment. SW did not receive MD order prior to pt's discharge. Pt discharged with friends via POV home. RONNIE Solis
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
== END 2016-09-14 12:42 | disposition home or self-care (01) | DRG 854 ==
LOC: SED 20:32 → UNDOADMIN 23:29 → MOC 23:29
PROVIDERS: ADMIT Internal Medicine; ATTEND Internal Medicine
PROC: 0J9J0ZZ Drainage of Right Hand Subcutaneous Tissue and Fascia, Open Approach (ICD-10-PCS; principal; 2016-09-09)
PROC: 4A033R1 Measurement of Arterial Saturation, Peripheral, Percutaneous Approach (ICD-10-PCS; 2016-09-11)
DX: A41.9 Sepsis, unspecified organism (principal); L03.113 Cellulitis of right upper limb; N17.9 Acute kidney failure, unspecified; L02.511 Cutaneous abscess of right hand; S61.411A Laceration without foreign body of right hand, initial encounter; W18.02XA Striking against glass with subsequent fall, initial encounter; F15.90 Other stimulant use, unspecified, uncomplicated; Z86.14 Personal history of Methicillin resistant Staphylococcus aureus infection; R03.0 Elevated blood-pressure reading, without diagnosis of hypertension; B95.0 Streptococcus, group A, as the cause of diseases classified elsewhere; B95.4 Other streptococcus as the cause of diseases classified elsewhere; F17.200 Nicotine dependence, unspecified, uncomplicated